=== PATIENT | male | born 1940 | race Caucasian/White ===

== ENCOUNTER 2017-08-21 17:16 | Observation (INO) | payer OTHER ==
[~2017-08-21] VITALS: Ht 172.7 cm; Wt 77.9 kg
[2017-08-21 18:05] LABS: BASOPHIL (%) 0.4 % (0-1); BASOPHIL COUNT 0.1 K/uL (0-0.1); EOSINOPHIL (%) 0.2 % (0-5); HEMATOCRIT 42.5 % (38.0-50.0); HEMOGLOBIN 15.3 G/DL (12.5-16.6); IMMATURE GRANULOCYTE (%) 0.4 % (0.0-0.7); LYMPHOCYTE (%) 13.2 % (15-42); LYMPHOCYTE COUNT 1.5 K/uL (1.0-2.8); MCH 34.5 PG (29.0-34.0); MCV 95.9 FL (86-99); MONOCYTE (%) 9.6 % (3-12); MONOCYTE COUNT 1.1 K/uL (0-0.8); NEUTROPHIL (%) 76.2 % (45-76); NEUTROPHIL COUNT 8.7 K/uL (1.8-6.4); PLATELET COUNT 164 K/uL (156-360); RBC DIS.WIDTH-CV 14.4 % (11.8-14.6); RBC DIS.WIDTH-SD 50.4 % (39-53); RED BLOOD COUNT 4.43 M/uL (4.00-5.50); WHITE BLOOD COUNT 11.4 K/uL (4.1-10.2)
[2017-08-21 18:13] LABS: ALBUMIN 4.2 g/dL (3.2-4.8); CHLORIDE 103 mEq/L (99-109); POTASSIUM 4.7 mEq/L (3.7-5.4); SODIUM 140 mEq/L (136-147)
[2017-08-21 18:15] LABS: GLUCOSE 102 mg/dL (70-99); TOTAL PROTEIN 6.7 g/dL (6.4-8.3)
[2017-08-21 18:17] LABS: TOTAL BILIRUBIN 1.1 mg/dL (0.0-1.0)
[2017-08-21 18:18] LABS: ALKALINE PHOSPHATASE 65 IU/L (3-129)
[2017-08-21 18:19] LABS: CREATININE 1.4 mg/dL (0.6-1.3)
[2017-08-21 18:20] LABS: AST (GOT) 157 IU/L (2-34); UREA NITROGEN (BUN) 36 mg/dL (9-23)
[2017-08-21 18:21] LABS: GFR ESTIMATE (CALCULATED) 52 mL/min/ (58.99-99999)
[2017-08-21 18:25] LABS: ALT (GPT) 15 IU/L (3-49)
[2017-08-21 18:34] LABS: CREATINE KINASE 4575 IU/L (1-294)
[2017-08-21] MEDS ORDERED: SINEMET 25-1001 EACH PO (18:57)
[2017-08-21] MEDS ORDERED: SYSTANE 0.3-0.1 EACH BOTH EYES (18:58)
[2017-08-21] MEDS ORDERED: FISH OIL 1,0001 EAC7 PO (18:58)
[2017-08-21 19:00] LABS: APPEARANCE CLEAR ((CLEAR)); BILIRUBIN NEGATIVE; BLOOD NEGATIVE; COLOR YELLOW ((YELLOW)); GLUCOSE (STRIP) NEGATIVE; KETONES 5; LEUKOCYTES TRACE; NITRITE NEGATIVE; PROTEIN (STRIP) 30; SPECIFIC GRAVITY 1.015 (1.000-1.030); UROBILINOGEN 0.2 MG/DL (0.2-1.0)
[2017-08-21] MEDS ORDERED: ZADITOR BOTH EYES (19:00)
[2017-08-21] MEDS ORDERED: LO-DOSE ASPIRIN81 M1 PO (19:00)
[2017-08-21] MEDS ORDERED: MAGNESIUM400 M1 PO (19:00)
[2017-08-21] MEDS ORDERED: CENTRUM SILVER1 EAC5 PO (19:01)
[2017-08-21] MEDS ORDERED: VITAMIN D-3 401 EACH PO (19:01)
[2017-08-21] MEDS ORDERED: SSD25GM TP (19:02)
[2017-08-21 19:03] LABS: BACTERIA NONE SEEN /HPF; EPITHELIAL CELLS NONE SEEN /HPF; HYALINE CASTS 0-5 /LPF; MUCUS TRACE /LPF; UCUL ADDED? YES
[2017-08-21 20:32] VITALS: BP 151/75
[2017-08-21 23:31] VITALS: BP 114/66
[2017-08-22 03:51] VITALS: BP 92/45
[2017-08-22 06:30] LABS: CHLORIDE 110 MEQ/L (99-109); CREATININE 1.1 MG/DL (0.6-1.3); GFR ESTIMATE (CALCULATED) > 59 mL/min/ (58.99-99999); GLUCOSE 87 mg/dL (70-99); SODIUM 144 MEQ/L (136-147); UREA NITROGEN (BUN) 31 mg/dL (9-23)
[2017-08-22 06:38] LABS: CREATINE KINASE 2338 IU/L (1-294)
[2017-08-22 07:51] VITALS: BP 121/68
[2017-08-22 11:53] VITALS: BP 137/78
== END 2017-08-22 15:43 | disposition home or self-care (01) ==
LOC: EME 17:16 → EDOF 19:24 → 4SOUTH 19:24 → EDOF 19:24 → ENRESERV 19:25 → 4SOUTH 20:27
PROVIDERS: Physician Assistant; Physician Assistant Medical
DX: M62.82 Rhabdomyolysis (principal); G20 Parkinson's disease; N17.9 Acute kidney failure, unspecified; E86.0 Dehydration; W19.XXXA Unspecified fall, initial encounter; J45.909 Unspecified asthma, uncomplicated; Z88.7 Allergy status to serum and vaccine; Z88.0 Allergy status to penicillin
CPT/HCPCS: 80048; 80053; 81003; 82550; 85025; 87086; 93005; 99281; 99285; G0378; J3480; J7030